=== PATIENT | female | born 1980 | race Caucasian/White ===

== ENCOUNTER 2024-01-09 16:07 | Emergency (ER) | payer OTHER, SELFPAY ==
[2024-01-09 16:10] VITALS: BP 144/96
[2024-01-09 16:39] LABS: % Basophils 0.4 % (0-2); % Immature Granulocytes 0.6 % (0-0.5); % Monocytes 5.5 % (1.7-9.3); % Neutrophils 71.5 % (42.2-75.2); Absolute Basophils 0.1 10^3/uL (0-0.2); Absolute Eosinophils 0.1 10^3/uL (0-0.7); Absolute Immature Granulocytes 0.1 10^3/uL (0-0.05); Absolute Lymphocytes 2.5 10^3/uL (1.2-3.4); Absolute Monocytes 0.7 10^3/uL (0.1-0.6); Absolute Neutrophils 8.4 10^3/uL (1.4-6.5); Hemoglobin 13.9 g/dL (12.0-16.0); Mean Corp Hgb Conc. 34.8 g/dL (33.0-37.0); Mean Corpuscular Hgb 29.3 pg (27.0-31.0); Mean Corpuscular Volume 84.2 fL (81.0-99.0); Mean Platelet Volume 10.2 fL (7.4-10.4); Nucleated Red Blood Cells % 0 %; Platelet Count 358 10^3/uL (130-400); Red Blood Cell Count 4.75 10^6/uL (4.20-5.40); Red Cell Dist. Width 13.2 % (11.5-14.5); White Blood Cell Count 11.8 10^3/uL (4.8-10.8)
[2024-01-09 16:53] LABS: ALT (SGPT) 25 U/L (0-35); AST (SGOT) 26 U/L (14-36); Albumin 4.9 g/dl (3.5-5.0); Alkaline Phosphatase 74 U/L (38-126); Blood Urea Nitrogen 18 mg/dl (7-17); Calcium 9.9 mg/dl (8.4-10.2); Carbon Dioxide 25 mmol/L (22-30); Chloride 102 mmol/L (98-107); Glucose 87 mg/dl (70-99); Potassium 4.2 mmol/L (3.5-5.1); Sodium 133 mmol/L (135-145); Total Bilirubin 0.5 mg/dl (0.2-1.3); Total Protein 7.7 g/dl (6.3-8.2); eGFR > 60.00
[2024-01-09 17:52] VITALS: BMI 29.6
[2024-01-09 17:56] VITALS: BP 129/100
[2024-01-09 18:00] VITALS: BP 133/100
--- NOTE | 2024-01-09 18:16 | ED.GENMED ---
History of Present Illness
General
Chief Complaint: Abdominal Pain
Time Seen by Provider: 01/09/24 18:00
Travel History
Have you had any contact with someone who has COVID-19?: No
Do you have any symptoms of coronavirus? Fever > 100 degrees, chills, cough, shortness of breath, sore throat, loss of taste or smell, muscle aches, or headache?: No
History of Present Illness
History of Present Illness:
43-year-old female presents to the emergency department for evaluation of lower abdominal cramping and persistent diarrhea for the past 7 days. Began after returning from a work trip to [place]. Denies any sick contacts at work or at home. Denies
any associated fever, chills, sweats, nausea, or vomiting. Reports watery nonbloody diarrhea. Did have a course of Augmentin approximately 2 months ago for strep throat.
Past History
Past History
ED Past Medical History: None
ED Past Surgical History: None
Social History
Tobacco: Non-smoker
Alcohol: None
Drug: None
Living: with family
Review of Systems
Review of Systems
Allergies reviewed?: Yes
All Other Systems: ROS reviewed and negative except as documented in HPI and ROS
Phy Exam
Physical Exam
Physical Exam:
GEN: Well appearing, NAD, WDWN
HEENT: Oral mucosa moist, no scleral icterus
Cardiac: Regular rate
Lung: No respiratory distress, no tachypnea
Abdomen: Soft, nontender
MSK: No gross deformity or injuries
Skin: Good color, no pallor or jaundice, no rashes
Neuro: AO x3, moves all extremities freely
Psych: Calm, cooperative
Course
Orders/Labs/Results
Orders:
Orders
01/09/24 16:26
Complete Blood Count/With Diff Urgent
Comprehensive Metabolic Panel Urgent
Abnormal Lab Results
01/09/24
16:26
WBC 11.8 H 10^3/uL
(4.8-10.8)
Abs Immat Gran (auto) 0.1 H 10^3/uL
(0-0.05)
Absolute Neuts (auto) 8.4 H 10^3/uL
(1.4-6.5)
Absolute Monos (auto) 0.7 H 10^3/uL
(0.1-0.6)
Immature Gran % 0.6 H %
(0-0.5)
Sodium 133 L mmol/L
(135-145)
BUN 18 H mg/dl
(7-17)
01/09/24 16:26
01/09/24 16:26
Vital Signs
Initial and Last Documented VS:
Initial Vital Signs
Temp Pulse Resp BP Pulse Ox
98.0 F 72 20 144/96 99
01/09/24 16:10 01/09/24 16:10 01/09/24 16:10 01/09/24 16:10 01/09/24 16:10
Last Documented Vital Signs
Temp Pulse Resp BP Pulse Ox
98.0 F 72 20 136/89 96
01/09/24 16:10 01/09/24 16:10 01/09/24 16:10 01/09/24 19:00 01/09/24 19:15
MDM/Problems Addressed
MDM/Problems Addressed:
Patient unable to provide stool specimen in the emergency department. She has a benign exam and reassuring labs, no indication for CT scan of the abdomen. Concern for C. difficile versus bacterial etiology, outpatient stool studies are sent. I
did prescribe her azithromycin should all stool studies be negative and would feel it is acceptable for her to take this if there is no other alternative explanation
*Critical Care Note
Total Time (30-74mins, 75-104mins- exclusive of procedures): Not Applicable
ED Attending Note
-
Portions of this chart may have been created with voice recognition software.� Occasional wrong word or��sound alike� substitutions may have occurred due to the inherent limitations of voice recognition software.
Discharge Plan
Departure
Patient Disposition: Home (Routine Discharge)
Date of Disposition: 01/09/24
Time of Disposition: 19:20
Patient with high blood pressure during this ER visit?: No
Discharge Problem:
Diarrhea
Instructions: Diarrhea in adolescents and adults
Prescriptions:
New
azithromycin 500 mg tablet
500 mg PO DAILY 3 Days Qty: 3 0RF
No Action
bupropion HCl [Wellbutrin] 100 mg Tablet
300 mg PO DAILY
methylphenidate HCl [Concerta] 18 mg Tablet Extended Release 24hr
18 mg PO DAILY
multivitamin Capsule
1 cap PO DAILY
Referrals:
UNKNOWN - PT NOT,INTERVIEWE [Family Provider] -
Activity Restrictions/Additional Instructions:
Provide stool sample as soon as possible
I have sent a prescription for azithromycin...this should only be used if all other stool tests are negative
Interventions
Interventions:
*Risk Screen - Suicide Last Done: 01/09/24 17:52
*General Assessment Last Done: 01/09/24 17:52
*Neglect/Abuse Screening Last Done: 01/09/24 17:52
ED- Fall Risk Assessment Last Done: 01/09/24 17:52
*ED COVID-19 Vaccine History Last Done: 01/09/24 17:49
*Nursing Disposition Last Done: 01/09/24 19:32
VK-Owaqar-Ooirzzayle Assessment Last Done: 01/09/24 17:52
Discharge Date and Time
Discharge Date/Time: 01/09/24 19:33
Print Language: BENINESE
[2024-01-09 19:00] VITALS: BP 136/89
== END 2024-01-09 19:33 | disposition home or self-care (01) ==
LOC: EMR 16:07
PROVIDERS: EMERGENCY PHYSICIAN Emergency Medicine
DX: R19.7 Diarrhea, unspecified (principal)
CPT/HCPCS: 99283; 80053; 85025

== ENCOUNTER → 2024-01-10 07:37 | Outpatient (REF) | payer OTHER, SELFPAY | LOC: REG 07:37 | PROVIDERS: ATTENDING PHYSICIAN Physician Assistant Medical; FAMILY PHYSICIAN Family Medicine | DX: R19.7 Diarrhea, unspecified (principal) | CPT/HCPCS: 87045; 87046; 87324; 87427; 87449 ==

== ENCOUNTER → 2024-05-22 06:44 | Outpatient (REF) | payer OTHER, SELFPAY | LOC: HWRAD 06:44 | PROVIDERS: ATTENDING PHYSICIAN Family Medicine | DX: R74.8 Abnormal levels of other serum enzymes (principal); R10.9 Unspecified abdominal pain | CPT/HCPCS: 76700 ==

== ENCOUNTER 2024-07-18 17:03 | Emergency (ER) | payer OTHER, SELFPAY ==
[2024-07-18 17:08] VITALS: BP 140/100
--- NOTE | 2024-07-18 18:08 | ED.GENMED ---
History of Present Illness
General
Chief Complaint: Musculo-Skeletal Complaint
Source: patient
Exam Limitations: none
Time Seen by Provider: 07/18/24 17:18
Nursing documentation reviewed up to this point in time: agreed with
History of Present Illness
History of Present Illness:
44-year-old female presenting to the emergency department today with concerns of abrupt sided calf when trying to sprint after her daughter just prior to arrival. [place] a pop in her calf unable to walk since secondary to pain. Denies numbness
weakness or additional concerns. No trauma to the area.
Past History
Past History
ED Past Medical History: None
ED Past Surgical History: None
Social History
Tobacco: Non-smoker
Alcohol: None
Drug: None
Living: with family
Review of Systems
Review of Systems
Allergies reviewed?: Yes
All Other Systems: ROS reviewed and negative except as documented in HPI and ROS
Phy Exam
Physical Exam
Physical Exam:
GENERAL: Alert , in no apparent distress
EYE: pupils equal and reactive
NECK: Supple, no significant adenopathy.
ENT: o/p clr, mmm.
CARDIAC: Regular rate and rhythm .
LUNGS: Clear breath sounds bilaterally, no acute respiratory distress, no wheezes/rales/rhonchi
ABDOMEN: Soft, without focal tenderness, no r/g, no cvat
NEUROLOGICAL: Alert and oriented, no focal neuro deficits
SKIN: Warm and dry, skin intact.
MUSCULOSKELETAL: Pain and swelling to the left sided gastrocnemius. Achilles appears to be intact normal Ferraro squeeze test. Increased discomfort with dorsiflexion. Patient is able to plantarflex. Well perfused.
PSYCH: Normal and appropriate interaction.
Course
Orders/Labs/Results
Orders:
Orders
07/18/24 17:53
Crutches-Treatment ONCE
boot [Ortho Boot Left- Treatment] ONCE
Short or tall?: Tall
Vital Signs
Initial and Last Documented VS:
Initial Vital Signs
Temp Pulse Resp BP Pulse Ox
98 F 85 16 140/100 98
07/18/24 17:08 07/18/24 17:08 07/18/24 17:08 07/18/24 17:08 07/18/24 17:08
Last Documented Vital Signs
Temp Pulse Resp BP Pulse Ox
98 F 85 16 140/100 98
07/18/24 17:08 07/18/24 17:08 07/18/24 17:08 07/18/24 17:08 07/18/24 17:08
MDM/Problems Addressed
MDM/Problems Addressed:
44-year-old female presenting to the emergency department today with concerns of a pop sensation to the left calf prior to arrival. Difficulty walking secondary to pain. Here neurovascular intact distally. Tenderness to the gastrocnemius but
Achilles appears to be intact on examination. Concerning this pain given crutches and a boot for protection otherwise advised for orthopedic follow-up. Return precautions given.
*Critical Care Note
Total Time (30-74mins, 75-104mins- exclusive of procedures): Not Applicable
ED Attending Note
-
Portions of this chart may have been created with voice recognition software.� Occasional wrong word or��sound alike� substitutions may have occurred due to the inherent limitations of voice recognition software.
Discharge Plan
Departure
Patient Disposition: Home (Routine Discharge)
Date of Disposition: 07/18/24
Time of Disposition: 18:11
Patient with high blood pressure during this ER visit?: No
Condition: Good
Covid-19: Not Applicable
Discharge Problem:
Strain of left calf muscle
Instructions: Muscle Strain (DC)
Prescriptions:
No Action
bupropion HCl [Wellbutrin] 100 mg Tablet
300 mg PO DAILY
methylphenidate HCl [Concerta] 18 mg Tablet Extended Release 24hr
18 mg PO DAILY
multivitamin Capsule
1 cap PO DAILY
azithromycin 500 mg tablet
500 mg PO DAILY 3 Days Qty: 3 0RF
Referrals:
Ba Perez MD [Family Provider] -
Handy Horne MD [Active] - Follow up in 5-7 days
Activity Restrictions/Additional Instructions:
You came to the emergency department today with concerns of cath discomfort. This is likely a muscle injury. Please slowly progress weightbearing as able and follow-up closely with orthopedics for further assessment and management. Return to the
emergency department for any worsening, new or concerning symptoms. In the meantime please elevate ice and take Motrin and Tylenol to help with symptoms.
Interventions
Interventions:
*Risk Screen - Suicide Last Done: 07/18/24 17:08
*Neglect/Abuse Screening Last Done: 07/18/24 17:08
Discharge Date and Time
Print Language: [place]
== END 2024-07-18 18:48 | disposition home or self-care (01) ==
LOC: EMR 17:03
PROVIDERS: EMERGENCY PHYSICIAN Emergency Medicine; FAMILY PHYSICIAN Family Medicine
DX: S86.112A Strain of other muscle(s) and tendon(s) of posterior muscle group at lower leg level, left leg, initial encounter (principal); X58.XXXA Exposure to other specified factors, initial encounter
CPT/HCPCS: 99282